=== PATIENT | female | born 1965 | race Caucasian/White ===

== ENCOUNTER 2019-06-16 06:05 | Day surgery (SDC) | payer OTHER ==
[~2019-06-16 06:05] MED LIST: DEXILANT30 MG PO; PROGESTERONE200 MG PO
[2019-06-16] MEDS ORDERED: TYLENOL EXTRA500 MG PO (09:36)
[2019-06-16] MEDS ORDERED: ZOFRAN4 MG PO (09:36)
[2019-06-16] MEDS ORDERED: MIRALAX17 GM PO (09:36)
[2019-06-16] MEDS ORDERED: TRAMADOL HCL50 MG PO (09:36)
[2019-06-16] MEDS ORDERED: NEURONTIN300 MG PO (09:36)
== END 2019-06-16 12:15 | disposition home or self-care (01) ==
LOC: CIR.AMB 06:05
DX: K41.31 Unilateral femoral hernia, with obstruction, without gangrene, recurrent (principal); K40.90 Unilateral inguinal hernia, without obstruction or gangrene, not specified as recurrent

== ENCOUNTER 2019-06-23 13:29 | Inpatient (IN) | payer OTHER ==
[~2019-06-23] VITALS: Ht 165.1 cm; Wt 68.0 kg
[~2019-06-23 13:29] MED LIST changes: +MIRALAX17 GM PO; +NEURONTIN300 MG PO; +TRAMADOL HCL50 MG PO; +TYLENOL EXTRA500 MG PO; +ZOFRAN4 MG PO
--- NOTE | 2019-06-23 13:47 | NUR ---
SE RECIBE A PTE AMBULANDO ALERTA Y ORIENTADA X 3 QUIEN REFIERE NAYELY SIDO OPERADA DE HERNIA FEMORAL POR EL DR. REGULO HOBSON E INDICA DOLOR ABDOMINAL HACE DOS ELISE. PTE REFIERE QUE DR. REGULO HOBSON LE INDICO A LA PTE QUE SE ATENDIERA EN LA LISET DE EMERGENCIAS. SE UBICA A PTE EN AREA DE OBSERVACION PARA SER EVALUADA POR MEDICO.
== END 2019-06-26 09:40 | disposition home or self-care (01) | DRG 337 ==
LOC: ER 13:29 → SURH 20:49 → SEC-K 20:49 → SURH 21:52 → SEC-K 22:46 → SURH 06-24 14:07 → SURG 06-24 15:03
PROVIDERS: ADMIT Surgery
PROC: BW21YZZ Computerized Tomography (CT Scan) of Abdomen and Pelvis using Other Contrast (ICD-10-PCS; 2019-06-23)
PROC: 0DNC4ZZ Release Ileocecal Valve, Percutaneous Endoscopic Approach (ICD-10-PCS; principal; 2019-06-24 15:15)
DX: K66.0 Peritoneal adhesions (postprocedural) (postinfection) (principal); K59.09 Other constipation; K45.8 Other specified abdominal hernia without obstruction or gangrene